=== PATIENT | male | born 1990 ===

== ENCOUNTER → 2017-09-15 | Outpatient (CLI) | payer OTHER | END | disposition home or self-care (01) | LOC: PPH VACUNA 13:52 | DX: Z23 Encounter for immunization (principal) ==

== ENCOUNTER → 2017-09-15 | Outpatient (CLI) | payer OTHER | END | disposition home or self-care (01) | LOC: PPHC LAB 13:40 | DX: Z02.0 Encounter for examination for admission to educational institution (principal) ==

== ENCOUNTER 2017-10-08 15:19 | Outpatient (CLI) | payer OTHER | END 2017-10-08 15:39 | disposition home or self-care (01) | LOC: LAB 15:19 | DX: Z11.59 Encounter for screening for other viral diseases (principal) ==